=== PATIENT | male | born 1960 | race Caucasian/White ===

== ENCOUNTER 2022-09-30 10:09 | Emergency (ER) | payer MEDICARE, MEDICAID ==
[~2022-09-30] VITALS: Ht 185.4 cm; Wt 81.8 kg
[2022-09-30 10:14] VITALS: BP 130/80
[2022-09-30] MEDS ORDERED: ibuprofen tablet 400 MG TABLET PO ONE (10:30)
[2022-09-30] MEDS ORDERED: acetaminophen 325mg tablet PO ONE (10:30)
--- NOTE | 2022-09-30 10:39 | NUR ---
Spoke to pharmacy r/t meds. Meds will be delivered from pharmacy.
[2022-09-30] MEDS ORDERED: ibuprofen 200mg tablet PO ONE (10:45)
--- NOTE | 2022-09-30 12:42 | NUR ---
D/C papers are not complete, unable to d/c.
== END 2022-09-30 12:50 | disposition home or self-care (01) ==
LOC: ER 10:09
DX: H61.23 Impacted cerumen, bilateral (principal); M26.603 Bilateral temporomandibular joint disorder, unspecified
CPT/HCPCS: 69209; 99283